=== PATIENT | female | born 1980 | race Caucasian/White ===

== ENCOUNTER 2018-09-12 14:51 | Inpatient (IN) | payer SELFPAY ==
[~2018-09-12] VITALS: Ht 157.5 cm; Wt 79.4 kg
[2018-09-12 15:33] LABS: BASOPHIL % 0.2 % (0-2); PLATELET COUNT 292 x10^3mcL (130-400); RED CELL DISTRIBUTION WIDTH 13.2 % (11.5-14.5)
[2018-09-12 15:46] LABS: CARBON DIOXIDE 24.6 mmol/L (21-32); CHLORIDE SERUM 104 mmol/L (98-107); CREATININE SERUM 0.9 mg/dL (0.6-1.0); GFR1 > 60 mL/min; GLUCOSE SERUM 89 mg/dL (74-106); POTASSIUM SERUM 3.3 mmol/L (3.5-5.1); SODIUM SERUM 137 mmol/L (136-145)
[2018-09-12 15:51] LABS: ALBUMIN 3.5 g/dL (3.4-5.0); ALKALINE PHOSPHATASE 78 U/L (46-116); ALT/SGPT 27 U/L (14-59); AST/SGOT 24 U/L (15-37); BILIRUBIN TOTAL 0.5 mg/dL (0.20-1.00); TOTAL PROTEIN, SERUM 7.7 g/dL (6.4-8.2)
[2018-09-12 16:05] LABS: FREE T4 0.98 ng/dL (0.76-1.46); FREE THYROXINE INDEX 2.6 ug/dL (1.4-4.5); T4(THYROXINE) 8.9 ug/dL (4.7-13.3)
[2018-09-12 16:31] LABS: T3 TOTAL 1.43 ng/mL
[2018-09-12 16:57] LABS: microscopic required? NO
[2018-09-12 17:18] LABS: urine erythrocyte NEGATIVE (NEGATIVE)
[2018-09-12 17:31] LABS: AMPHETAMINE QUAL UR NONE DETECTED (See below)
[2018-09-12] MEDS ORDERED: GABAPENTIN100 M2 (18:13)
[2018-09-12 18:18] LABS: CHOLESTEROL/HDL RATIO 3.4; MAGNESIUM 1.8 mg/dL (1.8-2.4); PHOSPHOROUS 1.7 mg/dL (2.5-4.9)
[2018-09-12 19:16] VITALS: BP 122/88
[2018-09-12 21:36] VITALS: BP 134/90
[2018-09-12 21:37] VITALS: BP 165/95
[2018-09-13 05:32] VITALS: BP 123/84
[2018-09-13 06:45] LABS: BASOPHIL % 0.4 % (0-2); PLATELET COUNT 247 x10^3mcL (130-400); RED CELL DISTRIBUTION WIDTH 13.8 % (11.5-14.5)
[2018-09-13 08:21] LABS: CALCIUM 8.6 mg/dL (8.5-10.1); CARBON DIOXIDE 24.5 mmol/L (21-32); CHLORIDE SERUM 107 mmol/L (98-107); CREATININE SERUM 0.8 mg/dL (0.6-1.0); GFR1 > 60 mL/min; GLUCOSE SERUM 95 mg/dL (74-106); PHOSPHOROUS 3.2 mg/dL (2.5-4.9); SODIUM SERUM 139 mmol/L (136-145)
[2018-09-13 10:04] VITALS: BP 142/95
[2018-09-13 10:41] VITALS: BP 142/95
== END 2018-09-13 12:50 | disposition home or self-care (01) | DRG 880 ==
LOC: ED 14:51 → DU 17:35
PROVIDERS: Emergency Medicine; General Practice
DX: F41.9 Anxiety disorder, unspecified (principal); I10 Essential (primary) hypertension; R00.0 Tachycardia, unspecified; Z82.49 Family history of ischemic heart disease and other diseases of the circulatory system; Z82.0 Family history of epilepsy and other diseases of the nervous system; F41.0 Panic disorder [episodic paroxysmal anxiety]; E87.6 Hypokalemia; E83.39 Other disorders of phosphorus metabolism; E66.9 Obesity, unspecified; Z68.32 Body mass index [BMI] 32.0-32.9, adult
CPT/HCPCS: 83880; 84439; 85378; J2060; J3490; J7030; Q0092